=== PATIENT | female | born 1990 | race Caucasian/White ===

== ENCOUNTER 2016-07-29 10:03 | Day surgery (SDC) | payer MEDICAID ==
[2016-07-24 09:58] LABS: Basophils % (Auto) 0.5 % (0.0-1.8); Hemoglobin 12.6 gm/dl (10.1-14.3); Mean Corpuscular HGB Conc 33 % (30-34); Mean Corpuscular Hemoglobin 29 pg (28-32); Mean Corpuscular Volume 88 fl (79-97); Platelet Count 257 K/mm3 (140-440); Red Blood Count 4.33 M/mm3 (3.65-5.03); Red Cell Distribution Width 12.6 % (13.2-15.2); White Blood Count 6.2 K/mm3 (4.5-11.0)
[2016-07-24 10:04] LABS: INR 0.94 (0.87-1.13)
[2016-07-24 10:05] LABS: Partial Thromboplastin Time 20.4 Sec. (24.2-36.6)
--- NOTE | 2016-07-24 10:42 | Anesthesia Consultation ---
Anesthesia Consult and Med Hx Date of service: 07/24/16 - Airway Anesthetic Teeth Evaluation: Good ROM Head & Neck: Adequate Mental/Hyoid Distance: Adequate Mallampati Class: Class II Intubation Access Assessment: Probably Good - Pre-Operative Health Status ASA Pre-Surgery Classification: ASA2 Proposed Anesthetic Plan: General Nerve Block: pectoralis - Pulmonary Hx Smoking: No Hx Sleep Apnea: No (KOBE PRE SCREEN HIGH RISK) - Cardiovascular System Hx Hypertension: Yes (WITH ANES ONLY/?ANXIETY- NO MEDS) - Central Nervous System Hx Back Pain: Yes Hx Psychiatric Problems: Yes (anxiety) - Hematic Hx Anemia: Yes - Other Systems Hx Cancer: No Hx Obesity: Yes (BMI 36.7)
[~2016-07-29 10:03] MED LIST: ANCEF/STERILE WATER 2 GM/20 ML IV NR; LACTATED RINGERS 1,000 ML IV SCH; PEPCID IV NR; SUBLIMAZE IV ONE; VERSED IV NR
[2016-07-29] MEDS ORDERED: NACL BACTERIOSTATIC INFILTRATI ONE (11:02)
[2016-07-29] MEDS ORDERED: NORCO 5/325 PO PRN (12:01)
[2016-07-29] MEDS ORDERED: ZOFRAN IV PRN (12:01)
--- NOTE | 2016-07-29 12:02 | Anesthesia Day of Surgery ---
Anesthesia Day of Surgery - Day of Surgery Patient Examined: Yes Patient H&P Reviewed: Yes Patient is NPO: Yes
[2016-07-29] MEDS ORDERED: DIPRIVAN 10 MG/ML IV ONE (12:27)
[2016-07-29] MEDS ORDERED: DILAUDID ONE ×3 (12:27→16:22)
[2016-07-29] MEDS ORDERED: DECADRON ONE (14:45)
[2016-07-29] MEDS ORDERED: XYLOCAINE MPF 2% ONE (14:49)
[2016-07-29] MEDS ORDERED: ZOFRAN ONE (14:49)
--- NOTE | 2016-07-29 14:49 | Post Anesthesia Evaluation ---
- Post Anesthesia Evaluation Patient Participated: Yes Airway Patent: Yes Stable Respiratory Function: Yes Nausea/Vomiting: No Temp > 96.8F: Yes Pain Manageable: Yes Adequeate Hydration: Yes Anesthesia Complications: No Block Receding Appropriately: Not Applicable Patient on Ventilator: No
[2016-07-29] MEDS ORDERED: SUBLIMAZE ONE (15:14)
[2016-07-29] MEDS ORDERED: NORMODYNE IV ONE (15:24)
[2016-07-29] MEDS ORDERED: NACL 0.9% IR ONE (15:55)
[2016-07-29] MEDS: DILAUDID IV PRN ×2 (17:35→17:45)
[2016-07-29 19:07] VITALS: BP 132/80
--- NOTE | 2016-07-29 19:32 | Operative Report ---
PREOPERATIVE DIAGNOSIS: Macromastia. POSTOPERATIVE DIAGNOSIS: Macromastia. PROCEDURE: Bilateral reduction mammoplasty. SURGEON: Ricardo Magana MD ROUNDHOUSE WORKER: Ruslan Alvarez CSA FINDINGS: 820 grams removed from the right breast, 700 grams removed from the left breast. DESCRIPTION OF PROCEDURE: The patient was brought to the operating room and placed in supine position. Following administration of general anesthesia, bilateral breasts were prepped with Betadine solution and draped in usual sterile manner. A #10 blade scalpel was used to make a circumareolar skin incision followed by de-epithelization of an inferior dermal pedicle. Modified Ma pattern skin markings were incised with scalpel, deepened through subcutaneous fat and breast tissue using the electrocautery. Skin flaps were raised in standard manner as was fashioning of an inferior central mound pedicle. Breasts tissue was resected and sent to pathology as specimen. Hemostasis controlled using electrocautery. Closure was performed over 10 mm Leopoldo drain using interrupted and running subcuticular 2-0 Monocryl sutures. Mastisol, Steri-Strips, and sterile dressings applied. The patient tolerated the procedure well and returned to recovery room in stable condition. JOB# [id number] FTW/NTS
== END 2016-07-29 19:05 | disposition home or self-care (01) ==
LOC: OR 10:03
PROVIDERS: ATTEND Plastic Surgery
DX: N62 Hypertrophy of breast (principal); I10 Essential (primary) hypertension; F41.9 Anxiety disorder, unspecified; D64.9 Anemia, unspecified; E66.9 Obesity, unspecified; Z68.36 Body mass index [BMI] 36.0-36.9, adult
CPT/HCPCS: 19318; 36415; 84703; 85025; 85610; 85730; 88305; J0690; J1100; J1170; J2250; J2405; J2704; J7120; J3010